=== PATIENT | female | born 1975 | race Caucasian/White ===

== ENCOUNTER 2018-05-07 15:03 | Emergency (ER) | payer MEDICAID ==
[~2018-05-07] VITALS: Ht 167.6 cm; Wt 100.2 kg
[2018-05-07 15:20] VITALS: BP_SYST 125
[2018-05-07 16:02] VITALS: BP_SYST 125
== END 2018-05-07 16:02 | disposition home or self-care (01) ==
LOC: SED 15:03
DX: L03.115 Cellulitis of right lower limb (principal); F17.210 Nicotine dependence, cigarettes, uncomplicated; R03.0 Elevated blood-pressure reading, without diagnosis of hypertension
CPT/HCPCS: 93971; 99284

== ENCOUNTER 2018-05-31 12:38 | Emergency (ER) | payer MEDICAID ==
[~2018-05-31] VITALS: Ht 167.6 cm; Wt 108.9 kg
[2018-05-31 12:41] VITALS: BP_SYST 112
--- NOTE | 2018-05-31 12:41 | NUR ---
Patient to ER bed 3 to gown for evaluation. Side rails up.
--- NOTE | 2018-05-31 12:42 | NUR ---
ER Dr. Lockett at bedside examining patient.
[2018-05-31 13:00] VITALS: BP_SYST 112
--- NOTE | 2018-05-31 13:00 | NUR ---
Patient given written and verbal discharge instructions and verbalizes understanding. ER MD discussed with patient the results and treatment provided. Patient in stable condition. ID arm band removed. Rx of clindamycin given. Patient educated on pain management and to follow up with PMD. Pain Scale 0/10. Opportunity for questions provided and answered.
--- NOTE | 2018-05-31 13:25 | NUR ---
Christiano raygoza in ED - 05/31/18 at 1328 by [facility] MICHOACANO Lockett at bedside examining patient.
== END 2018-05-31 13:00 | disposition home or self-care (01) ==
LOC: SED 12:38
DX: L03.116 Cellulitis of left lower limb (principal); E66.9 Obesity, unspecified; Z68.38 Body mass index [BMI] 38.0-38.9, adult
CPT/HCPCS: 99283

== ENCOUNTER 2018-12-19 01:58 | Emergency (ER) | payer MEDICAID ==
[~2018-12-19] VITALS: Ht 167.6 cm; Wt 99.8 kg
--- NOTE | 2018-12-19 02:05 | NUR ---
Patient to ER bed 5 for evaluation.
[2018-12-19 02:08] VITALS: BP_SYST 131
--- NOTE | 2018-12-19 02:10 | NUR ---
Pt BIB family to ED C/O bilat lower ext swelling with redness. Pt states she has hx of cellulitis. At first she thought it might be "bug bites" No other injuries and complaints noted and observed. Pt resting comfortable on gurney with rails up
--- NOTE | 2018-12-19 02:22 | NUR ---
Dr. Soto bedside for pt eval
[2018-12-19] MEDS ORDERED: CEFAZOLIN 1 GM IVPB PREMIX 50 ML IV ONE (02:30)
--- NOTE | 2018-12-19 02:45 | NUR ---
After establishing IV access, obtaining blood for cultures became difficult due to catheter positioned on a valve. Pt absolutely refuse to be stuck by any other needle. Dr. Soto aware and ordered the DC of sending Blood Cx before IV antibiotics protocol times one.
[2018-12-19 03:30] VITALS: BP_SYST 128
--- NOTE | 2018-12-19 03:30 | NUR ---
Patient given written and verbal discharge instructions and verbalizes understanding. ER MD discussed with patient the results and treatment provided. Patient in stable condition. ID arm band removed. IV catheter removed intact and dressing applied, no active bleeding. Rx of keflex and ultram given. Patient educated on pain management and to follow up with PMD. Pain Scale 0/10. Opportunity for questions provided and answered. Medication side effect fact sheet provided.
== END 2018-12-19 03:30 | disposition home or self-care (01) ==
LOC: SED 01:58
DX: L03.115 Cellulitis of right lower limb (principal); L03.116 Cellulitis of left lower limb
CPT/HCPCS: 96365; 99283; J0690

== ENCOUNTER 2019-02-22 23:12 | Emergency (ER) | payer MEDICAID ==
[~2019-02-22] VITALS: Ht 167.6 cm; Wt 90.7 kg
[2019-02-22 23:20] VITALS: BP_SYST 140
[2019-02-22] MEDS ORDERED: VANCOMYCIN HCL 1,000 MG in NS 250 ML IV ONE (23:45)
[2019-02-23] MEDS ORDERED: VANCOMYCIN HCL 1000 MG/VIAL IV ONE (00:22)
[2019-02-23 00:38] LABS: BASOPHILS # (AUTO) 0.1 K/uL (0.0-0.2); EOSINOPHILS # (AUTO) 0.3 K/uL (0.0-0.4); HEMATOCRIT 28.5 % (36-48); LYMPHOCYTES % (AUTO) 26.5 % (20.5-51.5); MEAN CORPUSCULAR HEMOGLOBIN 22 pg (27-31); MEAN CORPUSCULAR HGB CONC 32 % (32-36); MEAN CORPUSCULAR VOLUME 70 fL (79.0-98.0); MONOCYTES # (AUTO) 0.8 K/uL (0.0-1.0); MONOCYTES % (AUTO) 10.6 % (1.7-9.3); NEUTROPHILS # (AUTO) 4.3 K/uL (1.8-7.7); NEUTROPHILS % (AUTO) 57.9 % (40.0-70.0); PLATELET COUNT (AUTO) 386 K/uL (130-430); RED CELL DISTRIBUTION WIDTH 19.4 % (9.0-15.0); WHITE BLOOD COUNT (AUTO) 7.4 K/uL (4.8-10.8)
[2019-02-23 02:35] VITALS: BP_SYST 136
== END 2019-02-23 02:35 | disposition home or self-care (01) ==
LOC: SED 23:12
DX: L03.116 Cellulitis of left lower limb (principal)
CPT/HCPCS: 36415; 83605; 85025; 87040; 96365; 96366; 99283; J3370

== ENCOUNTER 2021-03-03 07:10 | Emergency (ER) | payer MEDICAID ==
[~2021-03-03] VITALS: Ht 167.6 cm; Wt 127.0 kg
[2021-03-03 07:10] VITALS: BP_SYST 135
[2021-03-03] MEDS ORDERED: CEPH250C PO (07:33)
== END 2021-03-03 07:40 | disposition home or self-care (01) ==
LOC: SED 07:10
DX: L03.116 Cellulitis of left lower limb (principal); L03.115 Cellulitis of right lower limb; R05 Cough; F17.210 Nicotine dependence, cigarettes, uncomplicated; Z79.899 Other long term (current) drug therapy
CPT/HCPCS: 99283